=== PATIENT | female | born 1940 | race African-American/Black ===

== ENCOUNTER 2018-03-29 14:59 | Inpatient (IN) | payer MEDICARE, MEDICAID ==
[~2018-03-29] VITALS: Ht 165.1 cm; Wt 118.0 kg
[~2018-03-29 14:59] MED LIST: AMLO10TA80; ASPI-1158 PO; CLON0.1T PO; LISI40TA4; OMEP20CA10 PO; PRAV40TA58
[2018-03-29 15:41] LABS: BASOPHILS % 0.8 % (0.0-2.0); EOSINOPHILS % 2.2 % (0.0-5.0); HEMATOCRIT. 35.9 % (36.0-48.0); LYMPHOCYTES % 53.1 % (20.0-50.0); MEAN CORPUSCULAR HEMOGLOBIN 30.1 pg (28.0-32.0); MEAN CORPUSCULAR VOLUME 90.1 fL (81.0-99.0); MEAN PLATELET VOLUME 7.7 fl (7.4-10.4); MONOCYTES % 5.9 % (2.0-8.0); PLATELET 172 x1000/uL (130-400); RED BLOOD CELL COUNT 3.98 mill/uL (4.2-5.4); RED CELL DISTRIBUTION WIDTH 13.6 % (11.6-14.6)
[2018-03-29] MEDS ORDERED: LABETALOL 5MG/ML SYR 20 MG/4 ML SYRINGE IV ONE ×2 (15:45→16:00)
[2018-03-29 15:48] LABS: PROTHROMBIN TIME 10.1 sec (9.1-11.1)
[2018-03-29 15:49] LABS: CHLORIDE 110 mEq/L (98-107)
[2018-03-29 15:55] LABS: ETHANOL BLOOD < 10 mg/dL
[2018-03-29 15:59] LABS: CREATINE KINASE 162 IU/L (26-192)
[2018-03-29] MEDS ORDERED: NICARDIPINE 50 MG in SODIUM CHLORIDE 0.9% 230 ML IV STA (16:20)
[2018-03-29] MEDS ORDERED: NICARDIPINE 40MG/200ML PREMIX 200 ML IV NR (16:29)
[2018-03-29] MEDS ORDERED: ACETAMINOPHEN 325MG TABLET PO ONE (16:30)
[2018-03-29] MEDS ORDERED: ASPIRIN 300MG SUPP PR ONE (16:45)
[2018-03-29] MEDS ORDERED: DIPHENHYDRAMINE 50MG/ML VIAL IV PRN (18:45)
[2018-03-29] MEDS ORDERED: ONDANSETRON HCL 4MG/2ML VIAL IV PRN (18:45)
[2018-03-29] MEDS ORDERED: LORAZEPAM 2MG/ML CPJ IV PRN (18:45)
[2018-03-29] MEDS ORDERED: GUAIFENESIN 200MG/10ML SUGAR FREE UDC PO PRN (18:45)
[2018-03-29] MEDS ORDERED: IPRATROPIUM/ALBUTEROL 0.5-3(2.5)MG/3ML NEB INH PRN (18:45)
[2018-03-29] MEDS ORDERED: DOCUSATE SODIUM 100MG CAPSULE PO PRN (18:45)
[2018-03-29] MEDS ORDERED: MAGNESIUM/ALUMINUM HYDROXIDE/SIMETHICONE 30ML UDC PO PRN (18:45)
[2018-03-29] MEDS ORDERED: ACETAMINOPHEN 325MG TABLET PO PRN (18:45)
[2018-03-29] MEDS ORDERED: HYDROCODONE/ACETAMINOPHEN 5/325MG TABLET PO PRN (18:45)
[2018-03-29] MEDS ORDERED: NA PHOS,M-B/NA PHOS,DI-BA ENEMA 118ML PR PRN (21:00)
[2018-03-29] MEDS ORDERED: HYDROMORPHONE HCL/PF 2MG/ML CPJ IV PRN (21:00)
[2018-03-29 21:05] VITALS: BP 192/125
[2018-03-29 22:00] VITALS: BP 185/120
[2018-03-29 23:46] LABS: CHLORIDE 108 mEq/L (98-107)
[2018-03-30] VITALS (10 sets, daily range): BP systolic 145–179; BP diastolic 83–108
[2018-03-30] MEDS ORDERED: DEXTROSE 50% WATER 50ML SYRINGE IV PRN (03:15)
[2018-03-30 07:23] LABS: BASOPHILS % 0.4 % (0.0-2.0); EOSINOPHILS % 1.7 % (0.0-5.0); HEMATOCRIT. 33.2 % (36.0-48.0); HEMOGLOBIN. 11.6 g/dL (12.0-16.0); MEAN CORPUSCULAR HEMOGLOBIN 31.5 pg (28.0-32.0); MEAN PLATELET VOLUME 8.2 fl (7.4-10.4); MONOCYTES % 8.7 % (2.0-8.0); NEUTROPHILS % 44.2 % (40.0-76.0); PLATELET 168 x1000/uL (130-400); RED BLOOD CELL COUNT 3.69 mill/uL (4.2-5.4); RED CELL DISTRIBUTION WIDTH 13.6 % (11.6-14.6)
[2018-03-30 07:40] LABS: CHLORIDE 108 mEq/L (98-107)
[2018-03-30] MEDS: BLOOD SUGAR DIAGNOSTIC STRIP TEST SCH ×4 (07:52→21:00)
[2018-03-30 08:01] LABS: HDL CHOLESTEROL 68 mg/dL (40-59); LDL CHOLESTEROL 156 mg/dL (5-100)
[2018-03-30] MEDS ORDERED: ENOXAPARIN 30MG/0.3ML SYR SUBCUT SCH (09:00)
[2018-03-30] MEDS ORDERED: LISINOPRIL 5MG TABLET PO SCH (09:00)
[2018-03-30] MEDS: AMLODIPINE 10MG TABLET PO SCH (09:01)
[2018-03-30] MEDS: ASPIRIN 81MG EC TABLET PO SCH (09:01)
[2018-03-30] MEDS: METOPROLOL TARTRATE 25MG TABLET PO SCH ×2 (09:01→21:26)
[2018-03-30] MEDS: BENAZEPRIL 10MG TABLET PO SCH (09:02)
[2018-03-30] MEDS: INSULIN LISPRO 100 UNITS/ML SUBCUT SCH ×4 (09:03→21:54)
[2018-03-30 15:16] LABS: CLARITY URINE CLOUDY (CLEAR); COLOR URINE YELLOW (YELLOW); KETONES URINE NEGATIVE (NEGATIVE); LEUKOCYTE ESTERASE URINE NEGATIVE (NEGATIVE); NITRITE URINE NEGATIVE (NEGATIVE); OCCULT BLOOD URINE NEGATIVE (NEGATIVE); PROTEIN URINE 3+ (NEGATIVE); SPECIFIC GRAVITY URINE 1.017 (1.005-1.030); UROBILINOGEN URINE 0.2 E.U./dL (0.2-1.0)
[2018-03-30 15:39] LABS: *COCAINE SCREEN URINE NEGATIVE (NEGATIVE); METHADONE URINE SCREEN NEGATIVE (NEGATIVE)
[2018-03-30 15:40] LABS: *AMPHETAMINES SCREEN URINE NEGATIVE (NEGATIVE); *BARBITURATES SCREEN URINE NEGATIVE (NEGATIVE); *BENZODIAZEPINES SCREEN URINE NEGATIVE (NEGATIVE); CANNABINOID URINE SCREEN NEGATIVE (NEGATIVE); OPIATES URINE SCREEN NEGATIVE (NEGATIVE); PHENCYCLIDINE URINE SCREEN NEGATIVE (NEGATIVE)
[2018-03-30] MEDS: ATORVASTATIN CALCIUM 40MG TABLET PO SCH (21:25)
[2018-03-30] MEDS: SODIUM CHLORIDE 0.45% 1,000 ML IV SCH (21:38)
[2018-03-31] MEDS: CLONIDINE 0.1MG TABLET PO PRN ×2 (05:13→18:34)
[2018-03-31 07:18] LABS: BASOPHILS % 0.9 % (0.0-2.0); HEMOGLOBIN. 11.7 g/dL (12.0-16.0); MEAN CORPUSCULAR HEMOGLOBIN 30.3 pg (28.0-32.0); MEAN CORPUSCULAR VOLUME 90.2 fL (81.0-99.0); MEAN PLATELET VOLUME 8.1 fl (7.4-10.4); MONOCYTES % 7.4 % (2.0-8.0); NEUTROPHILS % 40.7 % (40.0-76.0); PLATELET 169 x1000/uL (130-400); RED BLOOD CELL COUNT 3.88 mill/uL (4.2-5.4); RED CELL DISTRIBUTION WIDTH 13.8 % (11.6-14.6)
[2018-03-31 08:00] VITALS: BP 158/82
[2018-03-31] MEDS: INSULIN LISPRO 100 UNITS/ML SUBCUT SCH ×4 (08:00→20:58)
[2018-03-31] MEDS: BLOOD SUGAR DIAGNOSTIC STRIP TEST SCH ×4 (08:02→21:03)
[2018-03-31] MEDS: METOPROLOL TARTRATE 25MG TABLET PO SCH ×2 (09:00→20:59)
[2018-03-31] MEDS: AMLODIPINE 10MG TABLET PO SCH (09:00)
[2018-03-31] MEDS: BENAZEPRIL 10MG TABLET PO SCH (09:00)
[2018-03-31] MEDS: ASPIRIN 81MG EC TABLET PO SCH (09:31)
[2018-03-31] MEDS: ENOXAPARIN 40MG/0.4ML SYR SUBCUT SCH (09:31)
[2018-03-31 10:00] VITALS: BP 143/80
[2018-03-31 12:00] VITALS: BP 168/92
[2018-03-31 14:00] VITALS: BP 149/70
[2018-03-31 18:06] VITALS: BP 159/99
[2018-03-31] MEDS: ATORVASTATIN CALCIUM 40MG TABLET PO SCH (20:58)
[2018-03-31] MEDS: SODIUM CHLORIDE 0.45% 1,000 ML IV SCH (21:04)
[2018-03-31 22:00] VITALS: BP 157/90
[2018-04-01] VITALS (12 sets, daily range): BP systolic 127–180; BP diastolic 75–106
[2018-04-01] MEDS: CLONIDINE 0.1MG TABLET PO PRN ×2 (01:48→14:46)
[2018-04-01] MEDS: SODIUM CHLORIDE 0.45% 1,000 ML IV SCH ×2 (03:33→12:17)
[2018-04-01 07:17] LABS: BASOPHILS % 0.4 % (0.0-2.0); EOSINOPHILS % 3.5 % (0.0-5.0); HEMATOCRIT. 31.7 % (36.0-48.0); HEMOGLOBIN. 10.8 g/dL (12.0-16.0); LYMPHOCYTES % 49.2 % (20.0-50.0); MEAN CORPUSCULAR VOLUME 90.9 fL (81.0-99.0); MONOCYTES % 7.5 % (2.0-8.0); NEUTROPHILS % 39.4 % (40.0-76.0); PLATELET 167 x1000/uL (130-400); RED BLOOD CELL COUNT 3.49 mill/uL (4.2-5.4)
[2018-04-01] MEDS: BLOOD SUGAR DIAGNOSTIC STRIP TEST SCH ×4 (07:30→20:39)
[2018-04-01] MEDS: INSULIN LISPRO 100 UNITS/ML SUBCUT SCH ×4 (08:00→20:42)
[2018-04-01] MEDS: BENAZEPRIL 10MG TABLET PO SCH (09:03)
[2018-04-01] MEDS: AMLODIPINE 10MG TABLET PO SCH (09:03)
[2018-04-01] MEDS: METOPROLOL TARTRATE 25MG TABLET PO SCH ×2 (09:04→20:39)
[2018-04-01] MEDS: ENOXAPARIN 40MG/0.4ML SYR SUBCUT SCH (09:04)
[2018-04-01] MEDS: ASPIRIN 81MG EC TABLET PO SCH (09:04)
[2018-04-01] MEDS: ATORVASTATIN CALCIUM 40MG TABLET PO SCH (20:39)
[2018-04-02] VITALS (12 sets, daily range): BP systolic 139–182; BP diastolic 57–106
[2018-04-02 06:45] LABS: BASOPHILS % 0.5 % (0.0-2.0); EOSINOPHILS % 3.2 % (0.0-5.0); HEMATOCRIT. 33.4 % (36.0-48.0); HEMOGLOBIN. 11.3 g/dL (12.0-16.0); LYMPHOCYTES % 51.5 % (20.0-50.0); MEAN CORPUSCULAR HEMOGLOBIN 30.5 pg (28.0-32.0); MEAN CORPUSCULAR VOLUME 89.9 fL (81.0-99.0); MEAN PLATELET VOLUME 7.9 fl (7.4-10.4); MONOCYTES % 6.6 % (2.0-8.0); NEUTROPHILS % 38.2 % (40.0-76.0); PLATELET 176 x1000/uL (130-400); RED BLOOD CELL COUNT 3.71 mill/uL (4.2-5.4); RED CELL DISTRIBUTION WIDTH 13.7 % (11.6-14.6)
[2018-04-02] MEDS: BLOOD SUGAR DIAGNOSTIC STRIP TEST SCH ×4 (07:30→21:46)
[2018-04-02] MEDS: INSULIN LISPRO 100 UNITS/ML SUBCUT SCH ×4 (08:00→21:57)
[2018-04-02] MEDS: BENAZEPRIL 10MG TABLET PO SCH ×2 (09:00→11:23)
[2018-04-02] MEDS: ENOXAPARIN 40MG/0.4ML SYR SUBCUT SCH (09:39)
[2018-04-02] MEDS: ASPIRIN 81MG EC TABLET PO SCH (09:39)
[2018-04-02] MEDS: AMLODIPINE 10MG TABLET PO SCH ×2 (09:40→20:24)
[2018-04-02] MEDS: METOPROLOL TARTRATE 25MG TABLET PO SCH ×2 (09:40→20:25)
[2018-04-02] MEDS: BENAZEPRIL 20MG TABLET PO SCH ×2 (15:33→20:24)
[2018-04-02] MEDS ORDERED: HYDRALAZINE 20MG/ML VIAL IV NR (19:00)
[2018-04-02] MEDS: ATORVASTATIN CALCIUM 40MG TABLET PO SCH (20:25)
[2018-04-03] VITALS (8 sets, daily range): BP systolic 121–191; BP diastolic 76–97
[2018-04-03] MEDS: CLONIDINE 0.1MG TABLET PO PRN ×2 (06:08→14:03)
[2018-04-03] MEDS: BLOOD SUGAR DIAGNOSTIC STRIP TEST SCH ×2 (07:47→12:20)
[2018-04-03] MEDS: METOPROLOL TARTRATE 25MG TABLET PO SCH (09:03)
[2018-04-03] MEDS: AMLODIPINE 10MG TABLET PO SCH (09:03)
[2018-04-03] MEDS: ASPIRIN 81MG EC TABLET PO SCH (09:03)
[2018-04-03] MEDS: BENAZEPRIL 20MG TABLET PO SCH (09:03)
[2018-04-03] MEDS: INSULIN LISPRO 100 UNITS/ML SUBCUT SCH ×2 (09:04→13:32)
[2018-04-03] MEDS: ENOXAPARIN 40MG/0.4ML SYR SUBCUT SCH (09:04)
== END 2018-04-03 14:15 | DRG 64 ==
LOC: ER 15:02 → 5EST 16:30 → EDBEDREQTM 16:32 → EDBEDREQ 16:32 → ENRESERV 20:00 → 5EST 04-02 21:12
PROVIDERS: ADMIT Internal Medicine; ATTEND Internal Medicine
DX: I63.9 Cerebral infarction, unspecified (principal); G93.41 Metabolic encephalopathy; I13.0 Hypertensive heart and chronic kidney disease with heart failure and stage 1 through stage 4 chronic kidney disease, or unspecified chronic kidney disease; E46 Unspecified protein-calorie malnutrition; N17.9 Acute kidney failure, unspecified; Z68.41 Body mass index [BMI] 40.0-44.9, adult; G47.33 Obstructive sleep apnea (adult) (pediatric); E11.22 Type 2 diabetes mellitus with diabetic chronic kidney disease; D64.9 Anemia, unspecified; E66.01 Morbid (severe) obesity due to excess calories; E78.00 Pure hypercholesterolemia, unspecified; E11.42 Type 2 diabetes mellitus with diabetic polyneuropathy; E78.5 Hyperlipidemia, unspecified; I50.9 Heart failure, unspecified; N18.9 Chronic kidney disease, unspecified; N28.1 Cyst of kidney, acquired; Z86.73 Personal history of transient ischemic attack (TIA), and cerebral infarction without residual deficits; Z79.82 Long term (current) use of aspirin; Z79.899 Other long term (current) drug therapy; R29.810 Facial weakness; R47.81 Slurred speech
CPT/HCPCS: 36415; 70450; 70551; 71045; 76770; 80048; 80053; 80061; 80305; 81003; 82550; 82962; 83605; 83721; 83880; 84439; 84443; 84484; 85025; 85610; 92610; 93005; 93880; 96365; 96375; 97116; 97162; 97166; 97530; 97535; 99291; G0482; J0360; J1200; J1650; J1815; J3490; J7050